=== PATIENT | female | born 1975 | race Caucasian/White ===

== ENCOUNTER 2018-09-17 16:02 | Emergency (ER) | payer OTHER ==
[~2018-09-17] VITALS: Ht 160 cm; Wt 114.5 kg
[2018-09-17 16:04] VITALS: BP 115/54
== END 2018-09-17 17:25 | disposition home or self-care (01) ==
LOC: ED 16:02
DX: M79.601 Pain in right arm (principal); M70.921 Unspecified soft tissue disorder related to use, overuse and pressure, right upper arm; G43.909 Migraine, unspecified, not intractable, without status migrainosus

== ENCOUNTER 2019-01-01 16:08 | Emergency (ER) | payer SELFPAY ==
[~2019-01-01] VITALS: Ht 160 cm; Wt 110.7 kg
[2019-01-01 16:26] VITALS: BP 149/73
== END 2019-01-01 18:21 | disposition home or self-care (01) ==
LOC: ED 16:08
DX: H10.9 Unspecified conjunctivitis (principal); J06.9 Acute upper respiratory infection, unspecified; G43.909 Migraine, unspecified, not intractable, without status migrainosus